=== PATIENT | male | born 1990 | race Caucasian/White ===

== ENCOUNTER → 2019-09-21 | Outpatient (CLI) | payer BC ==
--- NOTE | 2019-09-21 13:32 | CT ---
EXAMINATION TYPE: CT sinus wo con DATE OF EXAM: 09/21/2019 COMPARISON: Coronal series from 06/02/2004 HISTORY: 29-year-old male J32.9, chronic sinusitis, headache with sinus pressure CT DLP: 660.9 mGycm Automated exposure control for dose reduction was used. TECHNIQUE: Noncontrast axial views of the paranasal sinuses were obtained. Coronal reconstructions pe rformed. FINDINGS: PARANASAL SINUSES: The frontal, maxillary, and sphenoid sinuses are clear and well pneumatized. Only trace mucosal thickening in the ethmoid air cells. There is no air-fluid level. Reactive samantha- osteogenesis is not seen. There is no destruction of the osseous rosas of the paranasal sinuses. THE NASAL CAVITY: The osteomeatal complexes are patent. Undulating nasal septum, towards the right anteriorly and inferiorly and toward the left more superio rly. The imaged brain and orbits are normal in appearance. Visualized mastoid air cells and middle ear cavities are well pneumatized. Reformatted images confirm above findings. IMPRESSION: 1. Only trace mucosal thickening in the ethmoid air cells. Otherwise, no significant paranasal sinus disease. 2. Undulating nasal septal deviation.
== END | disposition home or self-care (01) ==
LOC: RADCTMAIN 13:08
PROVIDERS: ATTEND Family Medicine
DX: J32.9 Chronic sinusitis, unspecified (principal); J34.2 Deviated nasal septum
CPT/HCPCS: 70486